=== PATIENT | female | born 1945 | race Caucasian/White ===

== ENCOUNTER 2017-03-06 18:38 | Emergency (ER) | payer BC, OTHER ==
[~2017-03-06] VITALS: Ht 160 cm; Wt 65.0 kg
[2017-03-06 18:45] VITALS: TEMP 36.8; Ht 160 cm; Wt 65.0 kg
[2017-03-06 20:05] VITALS: O2SAT 98
[2017-03-06 20:17] LABS: HEMATOCRIT 41.4 % (37-47); MEAN CELL VOLUME 86.8 fL (80-100); MEAN CORPUSCULAR HEMOGLOBIN 30.8 pg (25-34); MEAN CORPUSCULAR HGB CONC 35.5 g/dl (32-36); MEAN PLATELET VOLUME 10.5 fL (7.4-10.4); PLATELET COUNT 218 K/uL (130-400); RED BLOOD COUNT 4.77 M/uL (4.2-5.4); WHITE BLOOD COUNT 5.97 K/uL (4.8-10.8)
[2017-03-06 20:43] LABS: ALT/SGPT 22 U/L (12-78); BLOOD UREA NITROGEN 16 mg/dl (7-18); BUN/CREATININE RATIO 15.9 (10-20); CALCIUM 9.5 mg/dl (8.5-10.1); CARBON DIOXIDE 27 mmol/L (21-32); CHLORIDE 104 mmol/L (98-107); GLUCOSE 99 mg/dl (70-99); POTASSIUM 3.7 mmol/L (3.5-5.1); SODIUM 137 mmol/L (136-145)
[2017-03-06] MEDS ORDERED: OPTIRAY 320 IV PRN (20:45)
--- NOTE | 2017-03-06 20:46 | EMERGENCY ROOM VISIT NOTE ---
History Report prepared by Helga: Rigoberto Almanza Under the Supervision of: Dr. Pancho Appiah M.D. First contact with patient: 19:37 Chief Complaint: HYPERTENSION Stated Complaint: HYPERTENSION History of Present Illness The patient is a 71 year old female who presents to the Emergency Room with complaints of worsening hypertension that started five days ago. She states that she had vertigo five days ago, which is when her blood pressure began to rise. She states that she went to the hospital for her vertigo and had an EKG and chest x-ray done. The patient reports that her blood pressure that day was 169 systolically. She states that the next morning her blood pressure was 134 systolically. The patient is accompanied by a doctor who is her neighbor and states that today he had heard a bruit on her left brachial artery and bilateral neck arteries. He reports that he took her blood pressure, which was 180-200 systolically on her left arm and 220/120 on her right arm. The patient states that she has been having trouble walking from her vertigo. She states that she has been urinating normally, but admits she has not had a bowel movement for a couple of days. The patient states that she has not been eating due to her nausea from vertigo. She states that she has a history of a seizure, which she intermittently takes Meclizine for. The patient reports that she took Meclizine for her symptoms from her vertigo and admits that it helped with her nausea. The patient reports that she has had a murmur in the past when she was . The patient denies any pain and taking medication for blood pressure. Source of History: patient, other (doctor) Onset: five days ago Position: other (global) Quality: other (hypertension) Timing: worsening Associated Symptoms: + nausea, No neck pain, No chest pain, No abdominal pain, No back pain, No urinary symptoms Review of Systems All systems have been listed, reviewed, and are negative other than those previously mentioned. Please see Additional Medical History Sheet. Past Medical & Surgical Surgical Problems: (1) H/O: hysterectomy Family History Cancer Lung disease Social History Smoking Status: Never Smoker Alcohol Use: occasionally Drug Use: none Marital Status: Housing Status: lives with significant other Occupation Status: retired Current/Historical Medications Scheduled Cyanocobalamin (Vitamin B-12), 1 TAB PO DAILY Lisinopril (Prinivil), 10 MG PO QD Meclizine Hcl (Meclizine Hcl), 1 TAB PO Q6 Naproxen (Aleve), 220 MG PO PRN Pyridoxine (Vitamin B6), 1 TAB PO DAILY Allergies Coded Allergies: No Known Allergies (Verified Allergy, Unknown, 10/22/05) Physical Exam Vital Signs Date Time Temp Pulse Resp B/P (MAP) Pulse Ox O2 Delivery O2 Flow Rate FiO2 03/06/17 23:08 72 18 213/103 99 Room Air 139/86 03/06/17 22:18 84 18 200/82 99 Room Air 03/06/17 21:48 80 18 149/92 99 Room Air 220/112 03/06/17 21:39 87 18 164/93 97 Room Air 03/06/17 20:16 75 03/06/17 20:05 77 20 162/123 98 Room Air 252/118 03/06/17 20:05 98 Room Air 03/06/17 18:45 36.8 84 18 187/113 98 Room Air Physical Exam GENERAL: Patient awake, alert, oriented x 3. Patient follows commands. Patient does not appear toxic. Patient is adequately hydrated and well- nourished. SKIN: No erythema, pallor, cyanosis or rash HEENT: Normal head, pupils equal, reactive to light and accommodation. Ears normal. Oral cavity and posterior pharynx appear normal. Neck: Without adenopathy, no neck vein distention. LUNGS: Clear to auscultation. No wheezes, no rales, no rhonchi. HEART: Bruits on carotid. Murmurs noted with 3/6 on the right side and 4/6 on the left. S4 gallops. No rubs ABDOMEN: No masses, no rebound, no hepatomegaly or splenomegaly. EXTREMITIES: No signs of trauma. No pedal or pretibial edema. No calf or thigh tenderness. NEUROLOGIC: Cranial nerves II-XII within normal limits. No gross motor sensory function deficits. Medical Decision & Procedures ER Provider Diagnostic Interpretation: Radiology results as stated below per my review and radiologist interpretation: CHEST 2 VIEWS ROUTINE HISTORY: Hypertension. COMPARISON: Chest 10/22/2005. FINDINGS: No pneumothorax. No pleural effusions. The heart is normal in size. No focal lung consolidations to suggest pneumonia. No evidence for pulmonary edema. The lungs are mildly hyperexpanded. IMPRESSION: No acute process. Electronically signed by: Fidel Salazar M.D. 03/06/2017 8:51 PM Dictated Date/Time: 03/06/2017 8:50 PM CHEST CTA for AORTIC DISSECTION CT DOSE: 465.24 mGy.cm HISTORY: Hypertension. Asymmetric blood pressures. Assess for aortic dissection. TECHNIQUE: Multiaxial CT images of the chest were performed both before and after the intravenous administration of contrast to evaluate the aorta. Maximal intensity projection images were also obtained. A dose lowering technique was utilized adhering to the principles of ALARA. COMPARISON STUDY: Chest 03/06/2017. FINDINGS: Noncontrast imaging through the chest shows no evidence for an intramural hematoma within the thoracic aorta. Moderate calcified plaque throughout the majority of the thoracic aorta and left subclavian artery. There are coronary artery calcifications. Normal caliber thoracic aorta with no evidence for dissection. The heart is normal in size. No pleural or pericardial effusions. The central pulmonary arteries are patent. No mediastinal or hilar lymphadenopathy. The visualized liver, spleen, and adrenal glands are unremarkable. Approximately 50% focal stenosis within the proximal left subclavian artery due to the calcified plaque. No suspicious lytic or blastic osseous lesions. No pneumothorax. Biapical densities favor scarring. However, the right apical density has a more nodular appearance and measures 1.3 cm. This is best in image 34. No focal lung consolidations to suggest pneumonia. The central airways are patent. 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 IMPRESSION: 1. No evidence for an aortic dissection. 2. Approximately 50% focal stenosis within the proximal left subclavian artery due to the calcified plaque. 3. Biapical densities favor scarring. However, the right apical density has a more nodular appearance and measures 1.3 cm. Therefore, recommend six-month chest CT follow-up to ensure stability 4. 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 Electronically signed by: Fidel Salazar M.D. 03/06/2017 9:22 PM Dictated Date/Time: 03/06/2017 9:08 PM Laboratory Results 03/06/17 20:02 03/06/17 20:02 Test 03/06/17 20:02 Red Blood Count 4.77 M/uL (4.2-5.4) Mean Corpuscular Volume 86.8 fL (80-100) Mean Corpuscular Hemoglobin 30.8 pg (25-34) Mean Corpuscular Hemoglobin Concent 35.5 g/dl (32-36) RDW Standard Deviation 43.3 fL (36.4-46.3) RDW Coefficient of Variation 13.6 % (11.5-14.5) Mean Platelet Volume 10.5 fL (7.4-10.4) Anion Gap 6.0 mmol/L (3-11) Est Creatinine Clear Calc Drug Dose 45.4 ml/min Estimated GFR () 64.7 Estimated GFR (Non- 55.8 BUN/Creatinine Ratio 15.9 (10-20) Calcium Level 9.5 mg/dl (8.5-10.1) Total Bilirubin 0.4 mg/dl (0.2-1) Aspartate Amino Transf (AST/SGOT) 21 U/L (15-37) Alanine Aminotransferase (ALT/SGPT) 22 U/L (12-78) Alkaline Phosphatase 67 U/L (45-117) Troponin I < 0.015 ng/ml (0-0.045) Total Protein 8.0 gm/dl (6.4-8.2) Albumin 3.9 gm/dl (3.4-5.0) Globulin 4.1 gm/dl (2.5-4.0) Albumin/Globulin Ratio 0.9 (0.9-2) Thyroid Stimulating Hormone (TSH) 2.650 uIu/ml (0.300-4.500) Laboratory results as stated above per my review. Medications Administered Medications (Trade) Dose Ordered Sig/Alis Route Start Time Stop Time Status Last Admin Dose Admin Lisinopril (Zestril Tab) 10 mg NOW ONCE PO 03/06/17 22:15 03/06/17 22:16 DC 03/06/17 22:18 10 MG ECG Indication: other (hypertension) Rate (beats per minute): 72 Rhythm: normal sinus Findings: no acute ischemic change, no ectopy ED Course 1942: Past medical records reviewed. The patient was evaluated in room C02B. A complete history and physical examination was performed. 2214: Ordered Zestril Tab 10 mg PO. 2315: Upon reevaluation, the patient appeared to have improvement of her symptoms. I discussed today's findings with the patient. She verbalized agreement of the treatment plan. The patient was discharged home. Medical Decision Nurses notes reviewed. Medical history sheet reviewed. Differential diagnosis includes but is not limited to: hypertension out of control, carotid bruits, S4 gallop. Multiple labs, EKG and imaging were obtained. The patient has bruits in both carotids and her left antecubital fossa. This is consistent with a left subclavian partial occlusion. The patient's blood pressure is significantly elevated and more so on the right. The patient does not appear to have a dissection/aneurysm. Otherwise the patient is asymptomatic. The patient was started on lisinopril here and will continue that medication at home. I've requested the patient follow up with cardiology. The patient will most likely require further testing including carotid ultrasound. The patient's blood pressure will require further management. 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 I confirm that the note above accurately reflects all work, treatment, procedures, and medical decision making performed by me. Departure Information Dispostion Home / Self-Care Prescriptions Lisinopril (Prinivil) 5 Mg Tab 10 MG PO QD, #30 TAB Prov: Pancho Appiah M.D. 03/06/17 Referrals Mesfin Shultz M.D. (PCP) Patient Instructions My [facility] Additional Instructions 10 mg of lisinopril daily. Follow-up with cardiology as soon as possible. You will need a follow up CT of your chest in 6 months to evaluate a pulmonary nodule. Problem Qualifiers
[2017-03-06 20:53] LABS: ALKALINE PHOSPHATASE 67 U/L (45-117)
--- NOTE | 2017-03-06 20:53 | DIAGNOSTIC IMAGING REPORT ---
CHEST 2 VIEWS ROUTINE HISTORY: Hypertension. COMPARISON: Chest 10/22/2005. FINDINGS: No pneumothorax. No pleural effusions. The heart is normal in size. No focal lung consolidations to suggest pneumonia. No evidence for pulmonary edema. The lungs are mildly hyperexpanded. IMPRESSION: No acute process. Electronically signed by: Fidel Salazar M.D. 03/06/2017 8:51 PM Dictated Date/Time: 03/06/2017 8:50 PM
[2017-03-06 20:54] LABS: ALB/GLOB RATIO 0.9 (0.9-2); AST/SGOT 21 U/L (15-37)
[2017-03-06] MEDS ORDERED: CYAN250T PO (20:58)
[2017-03-06] MEDS ORDERED: PYRI100T4 PO (20:58)
[2017-03-06] MEDS ORDERED: NAPR1TAB9 PO (20:58)
[2017-03-06] MEDS ORDERED: MECL1TAB42 PO (20:58)
--- NOTE | 2017-03-06 21:24 | DIAGNOSTIC IMAGING REPORT ---
CHEST CTA for AORTIC DISSECTION CT DOSE: 465.24 mGy.cm HISTORY: Hypertension. Asymmetric blood pressures. Assess for aortic dissection. TECHNIQUE: Multiaxial CT images of the chest were performed both before and after the intravenous administration of contrast to evaluate the aorta. Maximal intensity projection images were also obtained. A dose lowering technique was utilized adhering to the principles of ALARA. COMPARISON STUDY: Chest 03/06/2017. FINDINGS: Noncontrast imaging through the chest shows no evidence for an intramural hematoma within the thoracic aorta. Moderate calcified plaque throughout the majority of the thoracic aorta and left subclavian artery. There are coronary artery calcifications. Normal caliber thoracic aorta with no evidence for dissection. The heart is normal in size. No pleural or pericardial effusions. The central pulmonary arteries are patent. No mediastinal or hilar lymphadenopathy. The visualized liver, spleen, and adrenal glands are unremarkable. Approximately 50% focal stenosis within the proximal left subclavian artery due to the calcified plaque. No suspicious lytic or blastic osseous lesions. No pneumothorax. Biapical densities favor scarring. However, the right apical density has a more nodular appearance and measures 1.3 cm. This is best in image 34. No focal lung consolidations to suggest pneumonia. The central airways are patent. 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 IMPRESSION: 1. No evidence for an aortic dissection. 2. Approximately 50% focal stenosis within the proximal left subclavian artery due to the calcified plaque. 3. Biapical densities favor scarring. However, the right apical density has a more nodular appearance and measures 1.3 cm. Therefore, recommend six-month chest CT follow-up to ensure stability 4. 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 Electronically signed by: Fidel Salazar M.D. 03/06/2017 9:22 PM Dictated Date/Time: 03/06/2017 9:08 PM
[2017-03-06] MEDS ORDERED: LISINOPRIL 5 MG TAB PO ONE (22:15)
[2017-03-06] MEDS ORDERED: LISI-729 PO (22:22)
[2017-03-06 23:08] VITALS: BP 139/86; PULSE 72; O2SAT 99
== END 2017-03-06 23:28 | disposition home or self-care (01) ==
LOC: C.EDB 18:39 → C.EDC 23:28
DX: I10 Essential (primary) hypertension (principal); I70.91 Generalized atherosclerosis

== ENCOUNTER → 2017-03-10 | Outpatient (CLI) | payer BC ==
[~2017-03-10] MED LIST: CYAN250T PO; LISI-729 PO; MECL1TAB42 PO; NAPR1TAB9 PO; PYRI100T4 PO
[2017-03-10 17:01] LABS: BLOOD UREA NITROGEN 19 mg/dl (7-18); BUN/CREATININE RATIO 19.5 (10-20); CALCIUM 9.2 mg/dl (8.5-10.1); CARBON DIOXIDE 27 mmol/L (21-32); CHLORIDE 102 mmol/L (98-107); GLUCOSE 93 mg/dl (70-99); POTASSIUM 3.8 mmol/L (3.5-5.1); SODIUM 137 mmol/L (136-145)
== END | disposition home or self-care (01) ==
LOC: C.LAB1850 16:13
PROVIDERS: ATTEND Physician Assistant
DX: I10 Essential (primary) hypertension (principal)

== ENCOUNTER → 2017-04-11 | Outpatient (CLI) | payer BC ==
[~2017-04-11] MED LIST changes: +REGADENOSON 0.4 MG/5 ML SYR ONE
--- NOTE | 2017-04-12 10:48 | Myocardial Perfusion Study ---
Myocardial Perfusion Study Rpt Myocardial Perfusion Study Rpt Date of Service 04/11/17 Myocardial Perfusion Study Rpt Procedure: 1. Myocardial perfusion study performed in multiple views/images 2. Lexiscan pharmacologic stress ECG Indications: 1. Abnormal echo Consent: Informed written consent was obtained prior to the procedure. Ordering physician/clinician: Lelo Laguna Procedural details: For the stress portion of the study, Lexiscan 0.4 mg was intravenously administered followed by a saline flush. This was followed by 32 mCi of technetium 99m Cardiolite, injected at 1:30 pm on 04/11/2017. 30 minutes following the injection, imaging of the heart was performed in multiple projections. For the rest portion of the study, 10.5 mCi technetium 99m Cardiolite was injected intravenously at 11:45 a.m. on 04/11/2017. 1 hour following the injection, imaging of the heart was performed in the same projections. Lexiscan stress ECG: Resting ECG demonstrated: Sinus rhythm at 83 bpm. Maximum heart rate: 117 bpm Resting blood pressure: 196/93 mmHg Maximum blood pressure: 196/93 mmHg Maximal, age-predicted heart rate: 80 % Significant ST changes: None Arrhythmia: None Symptoms: No chest pain reported. Findings: Rotating raw imaging demonstrated no significant lung uptake. There is no significant motion artifact. Heart size appeared normal. Myocardial perfusion demonstrated a small area of mildly reduced uptake involving the base to mid inferior wall, which appeared to be mostly reversible. There was gastric uptake noted, stress imaging greater than rest. Ejection fraction: 63 % Wall motion: Normal No significant transient ischemic dilation. Impression: 1. Abnormal myocardial perfusion study suggesting a small area of base to mid inferior wall ischemia. 2. Normal wall motion. 3. Normal left ventricular systolic function. EF 63%. 4. No arrhythmia. 5. Nondiagnostic Lexiscan ECG.
== END | disposition home or self-care (01) ==
LOC: C.NUCL 11:03
PROVIDERS: ATTEND Physician Assistant
DX: R93.1 Abnormal findings on diagnostic imaging of heart and coronary circulation (principal)

== ENCOUNTER → 2017-04-25 | Outpatient (CLI) | payer BC ==
[~2017-04-25] MED LIST changes: -REGADENOSON 0.4 MG/5 ML SYR ONE
[2017-04-25 10:42] LABS: ALT/SGPT 20 U/L (12-78); AST/SGOT 18 U/L (15-37); BLOOD UREA NITROGEN 18 mg/dl (7-18); BUN/CREATININE RATIO 18.2 (10-20); CALCIUM 9.2 mg/dl (8.5-10.1); CARBON DIOXIDE 31 mmol/L (21-32); CHLORIDE 103 mmol/L (98-107); CREATININE 0.99 mg/dl (0.60-1.20); GLUCOSE 96 mg/dl (70-99); POTASSIUM 4.4 mmol/L (3.5-5.1); SODIUM 137 mmol/L (136-145)
[2017-04-25 10:47] LABS: CHOLESTEROL 160 mg/dl (0-200); CHOLESTEROL/HDL RATIO 2.1; HDL CHOLESTEROL 76 mg/dl; LDL CHOLESTEROL CALCULATED 72 mg/dl; TRIGLYCERIDES 61 mg/dl (0-150); VERY LOW DENSITY LIPOPROT CALC 12 mg/dl
== END | disposition home or self-care (01) ==
LOC: C.LAB1850 09:12
PROVIDERS: ATTEND Physician Assistant
DX: I77.1 Stricture of artery (principal)

== ENCOUNTER → 2017-09-14 | Outpatient (CLI) | payer BC ==
[~2017-09-14] MED LIST changes: -LISI-729 PO
--- NOTE | 2017-09-14 14:19 | DIAGNOSTIC IMAGING REPORT ---
(CHEST) THORAX WITHOUT CLINICAL HISTORY: Solitary pulmonary nodule COMPARISON STUDY: 03/06/2017 CT DOSE: 317.60 mGycm TECHNIQUE: CT of the thorax was performed from the thoracic inlet to the lung bases. Images are reviewed in the axial, sagittal, and coronal planes. IV contrast was not administered for this examination. A dose lowering technique was utilized adhering to the principles of ALARA. FINDINGS: Thyroid: Imaged portions of the thyroid gland are normal in appearance. Thoracic aorta: The thoracic aorta is normal in course and caliber, noting standard 3 vessel arch anatomy. Heart: The heart is normal in size and configuration, without pericardial effusion. Lungs and pleural spaces: No pleural effusions are visualized. There is biapical pleural and parenchymal scarring. There are small filling defects within a left upper lobe bronchus, likely representing small mucous plugs. There is a 10 x 4 mm linear pleural-based opacity within the right upper lobe, likely representing an area of scarring. There is no focal pulmonary consolidation Mediastinum: There is no evidence of pathologic mediastinal lymphadenopathy Tamiko: There is no evidence of pathologic hilar adenopathy given the limitations of a noncontrast study Axilla: There is no evidence of pathologic axillary lymphadenopathy Upper abdomen: Partially visualized upper abdominal viscera is within normal limits. Skeletal structures: There are no lytic or blastic osseous lesions. IMPRESSION: 1. Stable biapical densities, likely representing pleural-parenchymal scarring 2. Small left upper lobe mucous plugs 3. No evidence of acute parenchymal consolidation. No evidence of pathologic adenopathy Electronically signed by: Kareem Fam M.D. 09/14/2017 2:18 PM Dictated Date/Time: 09/14/2017 2:13 PM
== END | disposition home or self-care (01) ==
LOC: C.CTS 13:37
PROVIDERS: ATTEND Family Medicine
DX: R91.1 Solitary pulmonary nodule (principal)

== ENCOUNTER → 2017-09-25 | Outpatient (CLI) | payer BC ==
[2017-09-25 13:02] LABS: ALT/SGPT 23 U/L (12-78); AST/SGOT 21 U/L (15-37); BLOOD UREA NITROGEN 17 mg/dl (7-18); CALCIUM 9.1 mg/dl (8.5-10.1); CARBON DIOXIDE 28 mmol/L (21-32); CHOLESTEROL 151 mg/dl (0-200); CREATININE 0.99 mg/dl (0.60-1.20); GLUCOSE 97 mg/dl (70-99); POTASSIUM 4.5 mmol/L (3.5-5.1); SODIUM 132 mmol/L (136-145)
[2017-09-25 13:05] LABS: LDL CHOLESTEROL CALCULATED 73 mg/dl
== END | disposition home or self-care (01) ==
LOC: C.LAB1850 10:35
PROVIDERS: ATTEND Internal Medicine Interventional Cardiology
DX: I25.10 Atherosclerotic heart disease of native coronary artery without angina pectoris (principal)